=== PATIENT | female | born 1990 | race Caucasian/White ===

== ENCOUNTER 2018-02-21 22:33 | Emergency (ER) | payer OTHER ==
[~2018-02-21] VITALS: Ht 162.6 cm; Wt 61.0 kg
[2018-02-21 22:45] VITALS: BP 121/83
[2018-02-22] MEDS ORDERED: ONDA4TAB6 PO (04:15)
[2018-02-22] MEDS ORDERED: ondansetron 4mg rapidly disintigrating tab PO ONE (04:15)
== END 2018-02-22 04:46 | disposition left against medical advice (07) ==
LOC: ER 22:35
DX: F41.9 Anxiety disorder, unspecified (principal); Z76.0 Encounter for issue of repeat prescription; Z91.012 Allergy to eggs; Z79.899 Other long term (current) drug therapy
CPT/HCPCS: 99283; 99284

== ENCOUNTER 2020-01-17 08:21 | Emergency (ER) | payer MEDICAID ==
[~2020-01-17] VITALS: Ht 160 cm; Wt 61.4 kg
[~2020-01-17 08:21] MED LIST: ONDA4TAB6 PO
[2020-01-17] MEDS ORDERED: dicyclomine 10 MG capsule PO ONE (09:25)
[2020-01-17] MEDS ORDERED: diphenhydrAMINE 50 mg/ml inj IV ONE (09:25)
[2020-01-17] MEDS ORDERED: proCHLORperazine 10 MG/2 ml inj IV ONE (09:25)
[2020-01-17] MEDS ORDERED: diphenoxylate/atropine tablet (Lomotil) PO ONE (09:25)
[2020-01-17] MEDS ORDERED: normal saline 1000ML IV soln IVB ONE (09:25)
[2020-01-17 10:23] LABS: BASOPHILS % (AUTO) 0.2 % (0-1); EOSINOPHILS % (AUTO) 0.2 % (0-6); HEMOGLOBIN 13.7 g/dl (12.0-16.0); LYMPHOCYTES # (AUTO) 0.9 X10'3 (1.1-4.8); LYMPHOCYTES % (AUTO) 7.5 % (21-51); MEAN CORPUSCULAR HEMOGLOBIN 29.9 PG (27.0-31.0); MEAN CORPUSCULAR HGB CONC 33.3 g/dL (33.0-36.5); MEAN CORPUSCULAR VOLUME 89.7 FL (78-98); MEAN PLATELET VOLUME 8.3 FL (7.4-10.4); MONOCYTES # (AUTO) 0.3 X10'3 (0-0.9); MONOCYTES % (AUTO) 2.2 % (2-12); NEUTROPHILS # (AUTO) 10.7 X10'3 (1.8-7.7); NEUTROPHILS % (AUTO) 89.9 % (42-75); PLATELET COUNT 326 X10'3 (140-440); RED BLOOD COUNT 4.56 X10'6 (4.20-5.60); RED CELL DISTRIBUTION WIDTH 14.1 % (11.5-14.5)
[2020-01-17 10:40] LABS: ALANINE AMINOTRANSFERASE 36 U/L (12-78); ALBUMIN 4.4 G/DL (3.4-5.0); ALBUMIN/GLOBULIN RATIO 1.3 (1.1-1.5); ALKALINE PHOSPHATASE 76 IU/L (46-116); ANION GAP 12 (8-16); BILIRUBIN,TOTAL 0.5 MG/DL (0.1-1.0); BLOOD UREA NITROGEN 14 MG/DL (7-18); BUN/CREATININE RATIO 16.9 (6.6-38.0); CALCIUM 9.6 MG/DL (8.5-10.1); CHLORIDE 107 MMOL/L (99-107); CREATININE 0.83 MG/DL (0.40-0.90); GLUCOSE 117 MG/DL (70-104); LIPASE 74 U/L (73-393); SODIUM 141 MMOL/L (135-145); TOTAL PROTEIN 7.7 G/DL (6.4-8.2); eGFR 81 ML/MIN
[2020-01-17 10:41] LABS: ASPARTATE AMINO TRANSFERASE 36 U/L (10-37); POTASSIUM 4.3 MMOL/L (3.5-5.1)
[2020-01-17] MEDS ORDERED: DICY10CA88 PO (11:30)
[2020-01-17] MEDS ORDERED: ONDA4TAB6 PO (11:30)
[2020-01-17 11:54] VITALS: BP 106/61
== END 2020-01-17 11:56 | disposition home or self-care (01) ==
LOC: ER 08:21
DX: R11.15 Cyclical vomiting syndrome unrelated to migraine (principal); R19.7 Diarrhea, unspecified; F41.9 Anxiety disorder, unspecified; Z91.012 Allergy to eggs; Z79.899 Other long term (current) drug therapy
CPT/HCPCS: 36415; 80053; 83690; 85025; 96374; 96375; 99284; J0780; J1200; J7030; 96361

== ENCOUNTER 2023-07-10 12:56 | Emergency (ER) | payer MEDICAID ==
[~2023-07-10] VITALS: Ht 162.6 cm; Wt 76.5 kg
[~2023-07-10 12:56] MED LIST changes: +DICY10CA88 PO
[2023-07-10 12:57] VITALS: BP 117/82; PULSE 86; TEMP 97.8; O2SAT 97
[2023-07-10] MEDS: ondansetron 4mg rapidly disintigrating tab PO ONE (13:45)
[2023-07-10] MEDS: ketorolac trometh inj. 60 MG/2 ML VIAL IM ONE (13:45)
[2023-07-10 14:19] LABS: BASOPHILS % (AUTO) 0.5 % (0-1); EOSINOPHILS # (AUTO) 0.1 X10'3 (0-0.9); EOSINOPHILS % (AUTO) 1.1 % (0-6); HEMOGLOBIN 12.3 g/dl (12.0-16.0); LYMPHOCYTES # (AUTO) 2.9 X10'3 (1.1-4.8); LYMPHOCYTES % (AUTO) 31.7 % (21-51); MEAN CORPUSCULAR HEMOGLOBIN 29.2 PG (27.0-31.0); MEAN CORPUSCULAR HGB CONC 33.2 g/dL (33.0-36.5); MEAN CORPUSCULAR VOLUME 87.9 FL (78-98); MONOCYTES # (AUTO) 0.4 X10'3 (0-0.9); MONOCYTES % (AUTO) 4.1 % (2-12); NEUTROPHILS # (AUTO) 5.7 X10'3 (1.8-7.7); NEUTROPHILS % (AUTO) 62.6 % (42-75); PLATELET COUNT 330 X10'3 (140-440); RED BLOOD COUNT 4.21 X10'6 (4.20-5.60); RED CELL DISTRIBUTION WIDTH 13.9 % (11.5-14.5); WHITE BLOOD COUNT 9.2 X10'3 (4.5-11.0)
[2023-07-10 14:32] LABS: ALANINE AMINOTRANSFERASE 13 U/L (12-78); ALBUMIN 3.5 G/DL (3.4-5.0); ALKALINE PHOSPHATASE 49 IU/L (46-116); ANION GAP 6 (8-16); ASPARTATE AMINO TRANSFERASE 7 U/L (10-37); BILIRUBIN,TOTAL 0.2 MG/DL (0.1-1.0); BLOOD UREA NITROGEN 13 MG/DL (7-18); BUN/CREATININE RATIO 18.1 (10.0-20.0); CALCIUM 9.3 MG/DL (8.5-10.1); CHLORIDE 106 MMOL/L (99-107); CREATININE 0.72 MG/DL (0.40-0.90); GLUCOSE 113 MG/DL (70-104); POTASSIUM 3.8 MMOL/L (3.5-5.1); SODIUM 140 MMOL/L (135-145); TOTAL CARBON DIOXIDE 27.6 MMOL/L (24-32); TOTAL PROTEIN 7.1 G/DL (6.4-8.2); eCRCL 97 ML/MIN; eGFR > 90 ML/MIN
[2023-07-10 14:41] LABS: LIPASE 27 U/L (16-77)
[2023-07-10 14:42] LABS: BETA HCG,QUANTITATIVE < 1.0 mIU/ml
[2023-07-10] MEDS ORDERED: HYDR-3965 PO (15:39)
[2023-07-10] MEDS ORDERED: ONDA8TAB13 PO (15:39)
[2023-07-10 16:17] VITALS: RESP 16
== END 2023-07-10 16:16 | disposition home or self-care (01) ==
LOC: ER 12:57
DX: N83.201 Unspecified ovarian cyst, right side (principal); Z91.012 Allergy to eggs; F41.9 Anxiety disorder, unspecified
CPT/HCPCS: 36415; 76856; 80053; 83690; 84702; 85025; 93976; 96372; 99285; J1885